=== PATIENT | female | born 1950 | race Caucasian/White ===

== ENCOUNTER 2019-11-29 06:17 | Day surgery (SDC) | payer MEDICARE ==
[2019-11-26 10:16] VITALS: BMI 31.2
--- NOTE | 2019-11-28 19:07 | P.HPIHPCON ---
History of Present Illness H&P Date: 11/28/19 Ms Welch is 69 yo female with hx of YUSUF. She is bothered by her symptoms. I discussed with her the option of doing kegel exercises vs mid urethral sling. I discussed with her the risk and benefit of each approach. She agreed to proceed with midurethral sling. I discussed with her the risk of bleeding, infection, injury to the urethra, bladder. I also discussed with her that I would be using mesh, I discussed the risk of mesh erosion through the vagina and urethra. I also discussed risk of retention and potential that her incontinence will persists despite sling. She understood all risks and agreed to proceed. Consent for Procedure: I have explained the operation/procedure to the patient, including the risks, benefits, side effects, alternative therapies (including not receiving the proposed treatment or service), the likelihood of the patient achieving his/her goals, and potential recuperation problems for the procedure/sedation/analgesia, as well as any blood products, if indicated. I also explained to the patient the risks, benefits and side effects of the alternatives, as well as the risks related to not receiving the proposed procedure, care, treatment, or services. Past Medical History Past Medical History: Hyperlipidemia, Hypertension History of Any Multi-Drug Resistant Organisms: None Reported Past Surgical History: Breast Surgery, Tubal Ligation Additional Past Surgical History / Comment(s): RIGHT ANKLE WITH PIN, BREAST BIOPSY, BILATERAL CARPAL TUNNEL SURGERY Past Anesthesia/Blood Transfusion Reactions: Motion Sickness Smoking Status: Never smoker - Past Family History Brother(s) Family Medical History: Cancer Medications and Allergies Home Medications Medication Instructions Recorded Confirmed Type Cholecalciferol [Vitamin D3 (25 5,000 unit PO DAILY 11/25/19 11/25/19 History Mcg = 1000 Iu)] Darifenacin Hydrobromide [Enablex] 7.5 mg PO DAILY 11/25/19 11/25/19 History Hydrochlorothiazide 12.5 mg PO DAILY 11/25/19 11/25/19 History Potassium Gluconate 99 mg PO DAILY 11/25/19 11/25/19 History Simvastatin [Zocor] 20 mg PO DAILY 11/25/19 11/25/19 History amLODIPine BESYLATE/BENAZEPRIL 1 tab PO DAILY 11/25/19 11/25/19 History [amLODIPine BESYLATE/BENAZEPRIL 5-20 MG] Allergies Allergy/AdvReac Type Severity Reaction Status Date / Time cat dander Allergy Wheezing Verified 11/25/19 13:51 Surgical - Exam - General no distress, no pain - Respiratory normal expansion, normal respiratory effort - Abdomen Abdomen: soft, non tender - Psychiatric oriented to time, oriented to person, oriented to place, speech is normal Assessment and Plan Assessment: 69 yo female with hx of YUSUF -OR for midurethral sling
[~2019-11-29 06:17] MED LIST: DEXAMETHASONE SOD PHOSPHATE 10 MG/ML 1 ML VIAL IV ONE; HYDROmorphone 0.5 MG/0.5 ML SYRINGE IVP PRN; LACTATED RINGERS 1,000 ML IV SCH; LIDOCAINE 1% (10MG/ML) FOR IV START INTRADERMA PRN; MIDAZOLAM 2 MG/2 ML VIAL IV PRN
[2019-11-29] MEDS ORDERED: DEXAMETHASONE SOD PHOSPHATE 10 MG/ML 1 ML VIAL IV ONE (07:10)
[2019-11-29] MEDS ORDERED: ONDANSETRON 4 MG/2 ML VIAL IVP ONE (07:10)
[2019-11-29] MEDS ORDERED: ONDANSETRON 4 MG/2 ML VIAL ONE (07:12)
[2019-11-29] MEDS ORDERED: SUCCINYLCHOLINE CHLORIDE 100 MG/5 ML SYR IV ONE (07:34)
[2019-11-29] MEDS ORDERED: LIDOCAINE 1% INJ 10MG/ML (20 ML MDV) ONE (07:34)
[2019-11-29] MEDS ORDERED: MIDAZOLAM 2 MG/2 ML VIAL ONE (07:34)
[2019-11-29] MEDS ORDERED: PROPOFOL 10 MG/ML 20 ML VIAL IV ONE (07:34)
[2019-11-29] MEDS ORDERED: fentaNYL (PF) 50 MCG/ML 2 ML AMP ONE (07:34)
[2019-11-29] MEDS ORDERED: LIDOCAINE 1%-EPI 1:100,000 20 ML VIAL SQ ONE ×2 (08:06)
[2019-11-29] MEDS ORDERED: GENTAMICIN 80 MG in SODIUM CHLORIDE 0.9% 500 ML 500 ML IRRIGATION ONE (08:24)
[2019-11-29] MEDS ORDERED: BACITRACIN 500 UNIT/GM OINT 28.4 GM TUBE TOPICAL ONE (08:45)
[2019-11-29] MEDS ORDERED: NON FORMULARY DRUG (Potassium Gluconate [Potassium Gluconate] 99 MG) PO SCH (09:00)
[2019-11-29] MEDS ORDERED: LACTATED RINGERS 1,000 ML IV ONE (09:05)
--- NOTE | 2019-11-29 09:13 | P.OP ---
Date of Procedure: 11/29/19 Preoperative Diagnosis: stress urinary incontinence Postoperative Diagnosis: same Procedure(s) Performed: Transobturator midurethral sling Implants: transobturator Obtryx sling Anesthesia: KAROL Surgeon: Manav Lizama Estimated Blood Loss (ml): 25 Pathology: none sent Condition: stable Disposition: PACU Indications for Procedure: Ms Welch is 69 yo female with hx of YUSUF. She is bothered by her symptoms. I discussed with her the option of doing kegel exercises vs mid urethral sling. I discussed with her the risk and benefit of each approach. She agreed to proceed with midurethral sling. I discussed with her the risk of bleeding, infection, injury to the urethra, bladder. I also discussed with her that I would be using mesh, I discussed the risk of mesh erosion through the vagina and urethra. I also discussed risk of retention and potential that her incontinence will persists despite sling. She understood all risks and agreed to proceed. Description of Procedure: The patient was taken to the operating room and placed in the dorsal lithotomy position, with her legs supported in John stirrups. The perineum, lower abdomen, and vagina were prepped and draped sterilely. A 16-[place] Benedict catheter was placed. Silk sutures were placed to retract the labia laterally on each side. 0.5% Marcaine with epinephrine was injected submucosally within the anterior vaginal wall, over the urethra. The scalpel was then used to make an anterior midline vaginal incision over the urethra. Metzenbaum scissors were used to dissect laterally within the submucosal plane, to the inferior pubic ramus. The scalpel was used to make bilateral groin incisions at the level of the clitoris. Subcutaneous tissues were spread with a hemostat. Each of the helical needles were passed through the respective groin incision, and turned such that the needle tip wrapped around the pubis. The needle tips were guided digitally into the vaginal incision. The Obtryx graft, which had been previously soaked in antibiotic solution, was secured to the needle tips in the standard fashion. The needles were then withdrawn, and the position of the graft was adjusted such that it overlie the mid urethra, as desired. With a hemostat placed between the graft and the urethra to prevent tension of the graft over the urethra, the plastic sheath was removed from the ends of the graft. The ends of the graft were cut beneath the skin incisions, and these incisions were closed using 4-0 Vicryl suture in a subcuticular fashion. Hemostasis within the vaginal incision was adequate, and the vaginal incision was closed using 2-0 Vicryl suture in a running fashion. Cystoscopy was performed. The 30 lens was used to introduce the 17-[place] Storz cystoscopic sheath through the urethra and into the bladder under direct vision. The urethra and bladder were unremarkable. There was no evidence of perforation. Both ureteral orifices were of normal anatomic location and configuration, and clear urine effluxed from both. No tumors or foreign bodies were seen. The cystoscope was removed, and the Benedict catheter was replaced into the bladder. Vaginal packing was placed. All sponge and needle counts were correct. The patient tolerated the procedure well was taken to the recovery room in stable condition.
[2019-11-29] MEDS: ATORVASTATIN 10 MG TAB PO SCH (11:22)
[2019-11-29] MEDS ORDERED: KETOROLAC 30 MG/ML 1 ML VIAL IVP SCH (12:00)
[2019-11-29] MEDS: KETOROLAC 30 MG/ML 1 ML VIAL IVP SCH ×3 (12:55→23:48)
[2019-11-29] MEDS: TROSPIUM CHLORIDE 20 MG TABLET PO SCH (13:07)
[2019-11-29] MEDS: DEXTROSE 5%-0.45% NACL 1,000 ML IV SCH ×2 (15:49→22:27)
[2019-11-29] MEDS: HEPARIN SODIUM,PORCINE 5,000 UNIT/ML 1 ML VIAL SQ SCH ×2 (15:50→23:48)
[2019-11-29] MEDS ORDERED: ceFAZolin 1 GM in SODIUM CHLORIDE 0.9% 100 ML IVPB SCH (16:00)
[2019-11-29 22:27] VITALS: RESP 18
[2019-11-30] MEDS: KETOROLAC 30 MG/ML 1 ML VIAL IVP SCH (06:08)
[2019-11-30] MEDS: DEXTROSE 5%-0.45% NACL 1,000 ML IV SCH (06:08)
[2019-11-30 08:37] VITALS: BP 121/70; PULSE 71; TEMP 98
[2019-11-30] MEDS: HEPARIN SODIUM,PORCINE 5,000 UNIT/ML 1 ML VIAL SQ SCH (08:38)
[2019-11-30] MEDS: ATORVASTATIN 10 MG TAB PO SCH (08:38)
[2019-11-30] MEDS: TROSPIUM CHLORIDE 20 MG TABLET PO SCH (08:39)
[2019-11-30] MEDS ORDERED: amLODIPine 5 MG TAB PO SCH (09:00)
[2019-11-30] MEDS ORDERED: LISINOPRIL 20 MG TAB PO SCH (09:00)
--- NOTE | 2019-11-30 17:42 | P.DS ---
Providers Attending physician: Manav Lizama MD Primary care physician: Stated None Hospital Course: Ms Welch is 69 yo female with hx of YUSUF, she underwent a transobturator mid urethral sling on 11/28. Please see op note dated 11/28 for surgery detail. She was admitted to the [facility] operatively. She had an uneventful post operative course. Catheter and vaginal pack was removed on POD #1. She was able to void after catheter removal. She was discharged home on pOD #1. At time of discharge she was tolerating diet, ambulating and pain is controlled. Plan - Discharge Summary Discharge Rx Participant: Yes New Discharge Prescriptions: New Cephalexin [Keflex] 500 mg PO Q6HR 3 Days #12 cap Ketorolac [Toradol] 10 mg PO Q6HR #15 tab No Action Cholecalciferol [Vitamin D3 (25 Mcg = 1000 Iu)] 5,000 unit PO DAILY amLODIPine BESYLATE/BENAZEPRIL [amLODIPine BESYLATE/BENAZEPRIL 5-20 MG] 1 tab PO DAILY Simvastatin [Zocor] 20 mg PO DAILY RX: Hydrochlorothiazide 12.5 mg PO DAILY Darifenacin Hydrobromide [Enablex] 7.5 mg PO DAILY RX: Potassium Gluconate 99 mg PO DAILY Discharge Medication List Cholecalciferol [Vitamin D3 (25 Mcg = 1000 Iu)] 5,000 unit PO DAILY 11/25/19 [History] Darifenacin Hydrobromide [Enablex] 7.5 mg PO DAILY 11/25/19 [History] RX: Hydrochlorothiazide 12.5 mg PO DAILY 11/25/19 [History] RX: Potassium Gluconate 99 mg PO DAILY 11/25/19 [History] Simvastatin [Zocor] 20 mg PO DAILY 11/25/19 [History] amLODIPine BESYLATE/BENAZEPRIL [amLODIPine BESYLATE/BENAZEPRIL 5-20 MG] 1 tab PO DAILY 11/25/19 [History] Cephalexin [Keflex] 500 mg PO Q6HR 3 Days #12 cap 11/30/19 [Rx] Ketorolac [Toradol] 10 mg PO Q6HR #15 tab 11/30/19 [Rx] Activity/Diet/Wound Care/Special Instructions: You may notice some vaginal spotting, but any heavy bleeding or clots call Dr Lizama. Report any fever, chills or worsening pain or difficulty voiding to Dr Lizama as soon as possible. You can use Toradol for pain as needed Discharge Disposition: HOME SELF-CARE
== END 2019-11-30 10:55 | disposition home or self-care (01) ==
LOC: OR 06:17 → 6PED 09:05 → OR 11-30 10:55
PROVIDERS: ATTEND Urology
DX: N39.3 Stress incontinence (female) (male) (principal); I10 Essential (primary) hypertension; E78.5 Hyperlipidemia, unspecified; Z98.51 Tubal ligation status; Z98.890 Other specified postprocedural states; Z80.1 Family history of malignant neoplasm of trachea, bronchus and lung; Z79.899 Other long term (current) drug therapy; Z91.048 Other nonmedicinal substance allergy status
CPT/HCPCS: 57288; C1771; J2250; J1580; J1644 ×2; J1100; J0690 ×3; J2405; J2001; J3010; J1885 ×2; J0330; J2704